=== PATIENT | female | born 1990 | race African-American/Black ===

== ENCOUNTER 2016-12-08 20:17 | Emergency (ER) | payer MEDICAID, SELFPAY | END 2016-12-08 20:41 | disposition home or self-care (01) | LOC: NAV ERS 20:17 | DX: K12.0 Recurrent oral aphthae (principal); F17.210 Nicotine dependence, cigarettes, uncomplicated | CPT/HCPCS: 99283 ==

== ENCOUNTER 2016-12-26 14:53 | Emergency (ER) | payer SELFPAY ==
[2016-12-26] MEDS ORDERED: Ondansetron ODT 4 MG TAB ONE (15:09)
[2016-12-26 15:17] LABS: Bilirubin Negative (Negative); Blood, Urine Negative (Negative); Glucose, Urine (Dipstick) Negative (Negative); Leukocyte Moderate (Negative); Nitrite Negative (Negative); Protein, Urine (Dipstick) Negative (Neg-Trace); Urobilinogen 0.2 mg/dL (0.2-1.0)
[2016-12-26 15:20] LABS: Clarity Hazy (Clear); Pregnancy Test - Urine (BHCG) POSITIVE (NEGATIVE)
[2016-12-26 15:21] LABS: Pregu Control Bar Appear? YES (CONTROL BAR)
[2016-12-26 15:23] LABS: Bacteria/HPF Rare-Few HPF (None Seen); RBC/HPF 0-3 HPF (0-3)
== END 2016-12-26 15:45 | disposition home or self-care (01) ==
LOC: NAV ERS 14:53
DX: O21.9 Vomiting of pregnancy, unspecified (principal); O99.331 Smoking (tobacco) complicating pregnancy, first trimester; F17.210 Nicotine dependence, cigarettes, uncomplicated; Z3A.01 Less than 8 weeks gestation of pregnancy
CPT/HCPCS: 81003; 81015; 81025; 99284; Q0162

== ENCOUNTER 2017-06-05 09:50 | Outpatient (CLI) | payer OTHER ==
--- NOTE | 2017-06-05 12:32 | ULT ---
OBSTETRICAL ULTRASOUND: INDICATIONS: Evaluate size and dates. FINDINGS: There is a single live intrauterine gestation in a predominantly cephalic presentation. The present ation was somewhat variable during the examination. The placenta is posterior in location, does abu t the posterior margin of the cervix, and is considered to be marginal. DALE is noted at 16 cm. Car diac activity is noted at heart rate is 133 beats per minute. The visualized head, cerebellum, cist lisa magna, lateral ventricles, four chamber heart, stomach, kidneys, cord structures, bladder, and stomach appear within normal limits. Three vessel cord appears within normal limits. Estimated fet al weight is 2 lbs 14 oz (1312 g). The estimated due date by ultrasound is 08/25/2017, with an mohit mated gestational age of 20 weeks and 3 days. IMPRESSION: 1. The placental margin abuts the posterior aspect of the cervix and may reflect a marginal placent a versus a poorly defined placenta previa. A follow-up examination in one week is recommended to re -evaluate the placenta and its relationship to the cervix. 2. survey appeared within normal limits. POS: JE[facility]AU[facility]
== END 2017-06-05 09:51 | disposition home or self-care (01) ==
LOC: NAV ULT 09:50
PROVIDERS: ATTEND Family Medicine
DX: Z34.83 Encounter for supervision of other normal pregnancy, third trimester (principal)
CPT/HCPCS: 76805

== ENCOUNTER 2017-06-21 07:57 | Emergency (ER) | payer OTHER ==
[2017-06-21 08:54] LABS: ALT (SGPT) 10 U/L (8-55); AST (SGOT) 15 U/L (5-34); Albumin 3.1 g/dL (3.5-5.0); Alkaline Phosphatase 139 U/L (40-150); Anion Gap 12 mmol/L (10-20); BUN (Urea Nitrogen) Less than 4 mg/dL (7.0-18.7); Bilirubin, Total 0.2 mg/dL (0.2-1.2); Calc. Creatinine Clearance 0 mL/min (70-130); Calcium 8.7 mg/dL (7.8-10.44); Carbon Dioxide 20 mmol/L (22-29); Chloride 108 mmol/L (98-107); Estimated GFR-MDRD Greater than 90; Globulin 3.5 g/dL (2.4-3.5); Glucose 92 mg/dL (70-105); Potassium 3.7 mmol/L (3.5-5.1); Protein, Total 6.6 g/dL (6.0-8.3); Sodium 136 mmol/L (136-145)
[2017-06-21 08:55] LABS: Bilirubin Negative (Negative); Blood, Urine Negative (Negative); Clarity Clear (Clear); Glucose, Urine (Dipstick) Negative (Negative); Leukocyte Trace (Negative); Nitrite Negative (Negative); Protein, Urine (Dipstick) Negative (Neg-Trace); Specific Gravity, Urine 1.015 (1.005-1.030)
[2017-06-21 09:02] LABS: #Basophils 0.1 thou/uL (0.0-0.2); #Eosinphils 0.1 thou/uL (0.0-0.7); #Lymphocytes 1.9 thou/uL (1.20-3.40); #Monocytes 0.7 thou/uL (0.11-0.59); #Neutrophils 4.9 thou/uL (1.40-6.50); %Eosinophils 0.8 % (0.0-10.0); %Monocytes 8.9 % (0.0-10.0); %Neutrophils 64.3 % (42.0-75.0); Hemoglobin 8.1 g/dL (12.0-16.0); Mean Corpuscular Hemoglobin 22.4 pg (27.0-31.0); Mean Corpuscular Volume 74.6 fl (81.0-99.0); Mean Platelet Volume 8.8 fL (7.4-10.4); Platelet Count 193 thou/uL (130-400); RBC Distribution Width 15.7 % (11.5-14.5); Red Blood Cell (RBC) Count 3.64 mill/uL (4.20-5.40); White Blood Cell (WBC) Count 7.6 thou/uL (4.8-10.8)
[2017-06-21 09:03] LABS: Anisocytosis SLIGHT = 6-15 cells (100X) (0-5/hpf); Hypochromia SLIGHT = 6-15 cells (100X) (0-5/hpf); MDiff Complete? YES; Microcytosis SLIGHT = 6-15 cells (100X) (0-5/hpf); PLT Morphology Comment Appears Adequate
[2017-06-21 09:05] LABS: RBC/HPF None Seen HPF (0-3); WBC/HPF 0-3 HPF (0-3)
[2017-06-21 09:06] LABS: Bacteria/HPF Rare-Few HPF (None Seen); Other Microscopic Description NO
[2017-06-21] MEDS ORDERED: Acetaminophen 500 MG TAB ONE (09:09)
== END 2017-06-21 09:20 | disposition short-term general hospital (02) ==
LOC: NAV ERS 07:57
DX: O46.93 Antepartum hemorrhage, unspecified, third trimester (principal); O99.333 Smoking (tobacco) complicating pregnancy, third trimester; F17.210 Nicotine dependence, cigarettes, uncomplicated; Z3A.28 28 weeks gestation of pregnancy
CPT/HCPCS: 51701; 80053; 81003; 81015; 84702; 85025; 86900; 86901; A4353

== ENCOUNTER 2017-07-06 00:27 | Emergency (ER) | payer OTHER | END 2017-07-06 01:25 | disposition short-term general hospital (02) | LOC: NAV ERS 00:27 | DX: O44.13 Complete placenta previa with hemorrhage, third trimester (principal); O99.333 Smoking (tobacco) complicating pregnancy, third trimester; F17.210 Nicotine dependence, cigarettes, uncomplicated; Z3A.33 33 weeks gestation of pregnancy | CPT/HCPCS: 99284 ==

== ENCOUNTER 2018-02-17 20:04 | Emergency (ER) | payer OTHER, SELFPAY ==
[2018-02-17 20:35] LABS: Bilirubin Negative (Negative); Blood, Urine Negative (Negative); Clarity Clear (Clear); Glucose, Urine (Dipstick) Negative (Negative); Leukocyte Small (Negative); Nitrite Negative (Negative); Protein, Urine (Dipstick) Negative (Neg-Trace); Specific Gravity, Urine 1.025 (1.005-1.030); Urobilinogen 0.2 mg/dL (0.2-1.0); pH, Urine 5.5 (5.0-9.0)
[2018-02-17 20:40] LABS: Pregnancy Test - Urine (BHCG) Negative (Negative); Pregu Control Background? CLEAR/WHITE (CLR/WHITE); Pregu Control Bar Appear? YES (CONTROL BAR); Specific Gravity 1.025 (1.002-1.036)
[2018-02-17 20:41] LABS: Bacteria/HPF None Seen HPF (None Seen); RBC/HPF None Seen HPF (0-3)
[2018-02-17] MEDS ORDERED: Cephalexin 250 MG CAP ONE (21:12)
== END 2018-02-17 21:25 | disposition home or self-care (01) ==
LOC: NAV ERS 20:04
DX: N39.0 Urinary tract infection, site not specified (principal); F17.210 Nicotine dependence, cigarettes, uncomplicated
CPT/HCPCS: 81003; 81015; 81025; 99283

== ENCOUNTER 2018-04-07 20:28 | Emergency (ER) | payer SELFPAY ==
[2018-04-07 20:49] LABS: Bilirubin Negative (Negative); Blood, Urine Large (Negative); Glucose, Urine (Dipstick) Negative (Negative); Leukocyte Moderate (Negative); Nitrite Negative (Negative); Protein, Urine (Dipstick) 30 mg/dL (Neg-Trace); Urobilinogen 0.2 mg/dL (0.2-1.0)
[2018-04-07 20:51] LABS: Clarity Cloudy (Clear); Pregnancy Test - Urine (BHCG) Negative (Negative); Pregu Control Background? CLEAR/WHITE (CLR/WHITE); Pregu Control Bar Appear? YES (CONTROL BAR); Specific Gravity 1.024 (1.002-1.036); Specific Gravity, Urine 1.024 (1.002-1.036)
[2018-04-07 20:59] LABS: WBC/HPF 21-50 HPF (0-3)
[2018-04-07 21:00] LABS: Bacteria/HPF 2+ HPF (None Seen); Transitional Epithelial 0-3 HPF (0-3)
[2018-04-09 05:45] LABS: Chlamydia by PCR Not Detected (NotDetected); GC by PCR Not Detected (NotDetected)
== END 2018-04-07 21:20 | disposition home or self-care (01) ==
LOC: NAV ERS 20:28
DX: L73.9 Follicular disorder, unspecified (principal); F17.210 Nicotine dependence, cigarettes, uncomplicated; Z71.6 Tobacco abuse counseling
CPT/HCPCS: 81003; 81015; 81025; 87491; 87591; 99406

== ENCOUNTER 2018-06-24 12:50 | Emergency (ER) | payer SELFPAY | END 2018-06-24 13:54 | disposition home or self-care (01) | LOC: NAV ERS 12:50 | DX: R05 Cough (principal); R50.9 Fever, unspecified; R09.81 Nasal congestion; R09.89 Other specified symptoms and signs involving the circulatory and respiratory systems; R09.82 Postnasal drip; R06.02 Shortness of breath; F17.210 Nicotine dependence, cigarettes, uncomplicated | CPT/HCPCS: 99283 ==

== ENCOUNTER 2018-12-01 20:34 | Emergency (ER) | payer SELFPAY ==
[2018-12-01] MEDS ORDERED: Ondansetron ODT 4 MG TAB ONE (21:06)
== END 2018-12-01 21:18 | disposition home or self-care (01) ==
LOC: NAV ERS 20:34
DX: K52.9 Noninfective gastroenteritis and colitis, unspecified (principal); F17.210 Nicotine dependence, cigarettes, uncomplicated
CPT/HCPCS: 99283; Q0162

== ENCOUNTER 2019-01-07 20:33 | Emergency (ER) | payer SELFPAY ==
[2019-01-07] MEDS ORDERED: Acetaminophen 500 MG TAB ONE (21:03)
[2019-01-07] MEDS ORDERED: Ketorolac Tromethamine 60 MG/2 ML VIAL ONE (21:03)
== END 2019-01-07 21:40 | disposition home or self-care (01) ==
LOC: NAV ERS 20:33
DX: M79.10 Myalgia, unspecified site (principal); F17.210 Nicotine dependence, cigarettes, uncomplicated; V43.52XA Car driver injured in collision with other type car in traffic accident, initial encounter
CPT/HCPCS: 96372; J1885

== ENCOUNTER 2022-10-29 18:00 | Emergency (ER) | payer BC, OTHER, SELFPAY ==
[2022-10-29] MEDS ORDERED: Ibuprofen 200 MG TAB ONE (19:11)
[2022-10-29] MEDS ORDERED: Bacitracin 1 PK ONE (19:11)
== END 2022-10-29 20:25 | disposition home or self-care (01) ==
LOC: NAV ERS 18:00
DX: S92.512A Displaced fracture of proximal phalanx of left lesser toe(s), initial encounter for closed fracture (principal); F17.210 Nicotine dependence, cigarettes, uncomplicated; W21.05XA Struck by basketball, initial encounter; Y93.67 Activity, basketball
CPT/HCPCS: 28510

== ENCOUNTER 2024-07-26 09:33 | Emergency (ER) | payer SELFPAY ==
[2024-07-26] MEDS ORDERED: Ipratropium/Albuterol 3 ML NEB ONE (10:12)
[2024-07-26] MEDS ORDERED: predniSONE 20 MG TAB ONE (11:04)
== END 2024-07-26 11:10 | disposition home or self-care (01) ==
LOC: NAV ERS 09:33
DX: J20.8 Acute bronchitis due to other specified organisms (principal)
CPT/HCPCS: 71046; 87070; 87205; 87428; 94640; J7512; J7620